=== PATIENT | male | born 1970 | race Caucasian/White ===

== ENCOUNTER → 2018-09-13 | Outpatient (REF) ==
--- NOTE | 2018-09-14 06:03 | REP ---
Clinical: Pain and disability. Technique: AP, lateral, coned-down views of the lumbosacral spine. Findings: Alignment and lordosis maintained without acute fracture / compression injury or subluxation. Minimal degenerative changes include endplate sclerosis along with early spurring at the L1-2 and L2-3 as well as mild hypertrophic facet changes at L5-S1. Impression: Mild degenerative changes. If the patient remains symptomatic consider MRI for further investigation. Chronic spondylolysis at L5 cannot be excluded. Electronically Signed by Alonzo Santana MD 09/14/2018 05:54 A
== END ==
LOC: M SMT 13:35
PROVIDERS: ATTEND Internal Medicine
DX: Z00.00 Encounter for general adult medical examination without abnormal findings (principal)